=== PATIENT | female | born 1945 ===

== ENCOUNTER 2021-05-10 17:36 | Inpatient (IN) | payer OTHER ==
[~2021-05-10] VITALS: Ht 162.6 cm; Wt 78.6 kg
[2021-05-10 18:32] LABS: BASOPHILS ABSOLUTE AUTO 0.05 K/mm3 (0.00-0.23); BASOPHILS PERCENT AUTO 1 % (0-2); EOSINOPHILS ABSOLUTE AUTO 0.02 K/mm3 (0.00-0.68); EOSINOPHILS PERCENT AUTO 0 % (0-6); IMMATURE GRAN ABSOLUTE AUTO 0.03 K/mm3 (0.00-0.10); IMMATURE GRAN PERCENT AUTO 0 % (0-1); LYMPHOCYTES ABSOLUTE AUTO 0.81 K/mm3 (0.84-5.20); LYMPHOCYTES PERCENT AUTO 9 % (21-46); MONOCYTES ABSOLUTE AUTO 0.58 K/mm3 (0.16-1.47); MONOCYTES PERCENT AUTO 6 % (4-13); Mean Corpuscular HGB 27.1 pg (26.0-34.0); Mean Corpuscular Volume 90 fL (80-100); Mean Platelet Volume 9.1 fL (9.1-12.4); NEUTROPHILS ABSOLUTE AUTO 7.72 K/mm3 (1.96-9.15); NEUTROPHILS PERCENT AUTO 84 % (41-73); Platelet Count 268 K/mm3 (150-400); RDW Coefficient Variation 15.7 % (11.7-14.2); Red Blood Cell Count 4.43 M/mm3 (3.80-5.20); White Blood Cell Count 9.21 K/mm3 (4.00-11.30)
[2021-05-10] MEDS ORDERED: EUTHYROX150 MC1 PO (18:39)
[2021-05-10] MEDS ORDERED: METOPROLOL TART PO (18:39)
[2021-05-10] MEDS ORDERED: Lisinopril2.5 MG (18:40)
[2021-05-10] MEDS ORDERED: AMLODIPINE BES2.5 MG (18:40)
[2021-05-10 19:02] LABS: Alanine Aminotransfer (ALT/SGP 130 U/L (12-78); Albumin, Blood 3.1 g/dL (3.4-5.0); Alk Phos 151 U/L (50-136); Anion Gap 3 mmol/L (6-16); Aspartate Aminotrans (AST/SGOT 72 U/L (12-37); Bilirubin, Total 0.2 mg/dL (0.1-1.0); Blood Urea Nitrogen 25 mg/dL (8-24); Bun/Creatinine Ratio 27.4 (12.0-20.0); CO2, Blood 32 mmol/L (21-32); Calcium, Blood 8.6 mg/dL (8.5-10.1); Chloride, Blood 104 mmol/L (98-108); Creatinine, Blood 0.91 mg/dL (0.40-1.00); Globulin, Blood 3.2 g/dL (2.2-4.0); Glomerular Filtration Rate >60 (60-); Glucose, Blood 109 mg/dL (70-99); Potassium, Blood 4.6 mmol/L (3.5-5.5); Sodium, Blood 139 mmol/L (136-145); Total Protein, Blood 6.3 g/dL (6.4-8.2)
[2021-05-10 22:59] LABS: Influenza A, PCR NEGATIVE (NEGATIVE); Influenza B, PCR NEGATIVE (NEGATIVE); Resp Syncytial Virus, PCR NEGATIVE (NEGATIVE); SARS-Cov-2 (COVID-19) PCR, MMC NEGATIVE (NEGATIVE)
--- NOTE | 2021-05-11 05:10 | NUR ---
Received patient from ER. She came in for CHF Exacerbation. She is AAOX3, respiration unlabored, she is on O2 @4L via N/C. She is independent in the room, no complaint of pain or disconfort voices. She is able to communicates her need, She is pleasant and cooperative with care. Bed in low position, call light within reach, We will continue to monitor patient.
[2021-05-11 05:31] LABS: BASOPHILS ABSOLUTE AUTO 0.04 K/mm3 (0.00-0.23); BASOPHILS PERCENT AUTO 1 % (0-2); EOSINOPHILS ABSOLUTE AUTO 0.02 K/mm3 (0.00-0.68); EOSINOPHILS PERCENT AUTO 0 % (0-6); Hematocrit 37.3 % (33.0-51.0); IMMATURE GRAN ABSOLUTE AUTO 0.02 K/mm3 (0.00-0.10); IMMATURE GRAN PERCENT AUTO 0 % (0-1); LYMPHOCYTES ABSOLUTE AUTO 0.96 K/mm3 (0.84-5.20); LYMPHOCYTES PERCENT AUTO 14 % (21-46); MONOCYTES ABSOLUTE AUTO 0.57 K/mm3 (0.16-1.47); MONOCYTES PERCENT AUTO 8 % (4-13); Mean Corpuscular HGB 26.7 pg (26.0-34.0); Mean Corpuscular HGB Conc 29.5 g/dL (31.5-36.5); Mean Corpuscular Volume 91 fL (80-100); Mean Platelet Volume 9.2 fL (9.1-12.4); NEUTROPHILS ABSOLUTE AUTO 5.37 K/mm3 (1.96-9.15); NEUTROPHILS PERCENT AUTO 77 % (41-73); Platelet Count 248 K/mm3 (150-400); RDW Coefficient Variation 15.8 % (11.7-14.2); RDW Standard Deviation 51.9 fL (35.1-46.3); Red Blood Cell Count 4.12 M/mm3 (3.80-5.20); White Blood Cell Count 6.98 K/mm3 (4.00-11.30)
[2021-05-11 06:07] LABS: Bilirubin, Total 0.3 mg/dL (0.1-1.0); Bun/Creatinine Ratio 25.1 (12.0-20.0); Calcium, Blood 8.4 mg/dL (8.5-10.1); Creatinine, Blood 0.96 mg/dL (0.40-1.00)
[2021-05-11 11:08] LABS: Free Thyroxine 1.26 ng/dL (0.70-1.60)
[2021-05-11 11:10] LABS: Thyroid Stimulating Hormone 2.34 uIU/mL (0.360-4.800)
--- NOTE | 2021-05-11 17:33 | NUR ---
PATIENT HERE DUE TO CHF EXACERBATION, ALERT AND ORIENTED X 4, ON O2 3 L/MN VIA N/C, SAT 91-93%. ON TELE MONITORING, SHOWING NS BBB PER SUPERVISOR METAL CANS. ON LASIX IV. ECHOCARDIGRAM AND EKG DONE TODAY. LOW B/P THIS AFTERNOON. DENIES CHEST PAIN OR DISCOMFORT. WILL CONTINUE TO MONITOR.
--- NOTE | 2021-05-12 05:18 | NUR ---
PT IS AWAKE THIS MORNING. NO ACUTE EVENTS OVERNIGHT, THE PT DID NOT COMPLAIN OF N/V, SOB, OR PAIN DURING THE SHIFT. PT IS STILL ON 3L O2 AND IS SATTING >90 WITH NO SIGNS OF EXTRA WORK OF BREATHING. PT STATES SHE FEELS GREAT THIS MORNING. PT BELONGINGS AND CALL LIGHT ARE WITHIN REACH.
[2021-05-12 05:22] LABS: BASOPHILS ABSOLUTE AUTO 0.05 K/mm3 (0.00-0.23); BASOPHILS PERCENT AUTO 1 % (0-2); EOSINOPHILS PERCENT AUTO 1 % (0-6); Hematocrit 36.3 % (33.0-51.0); Hemoglobin 10.6 g/dL (11.5-16.0); IMMATURE GRAN ABSOLUTE AUTO 0.03 K/mm3 (0.00-0.10); IMMATURE GRAN PERCENT AUTO 0 % (0-1); LYMPHOCYTES ABSOLUTE AUTO 1.11 K/mm3 (0.84-5.20); LYMPHOCYTES PERCENT AUTO 15 % (21-46); MONOCYTES ABSOLUTE AUTO 0.68 K/mm3 (0.16-1.47); MONOCYTES PERCENT AUTO 9 % (4-13); Mean Corpuscular HGB 26.6 pg (26.0-34.0); Mean Corpuscular HGB Conc 29.2 g/dL (31.5-36.5); Mean Corpuscular Volume 91 fL (80-100); Mean Platelet Volume 9.2 fL (9.1-12.4); NEUTROPHILS ABSOLUTE AUTO 5.42 K/mm3 (1.96-9.15); NEUTROPHILS PERCENT AUTO 73 % (41-73); Platelet Count 253 K/mm3 (150-400); RDW Coefficient Variation 15.8 % (11.7-14.2); Red Blood Cell Count 3.99 M/mm3 (3.80-5.20); White Blood Cell Count 7.39 K/mm3 (4.00-11.30)
[2021-05-12 05:42] LABS: Alanine Aminotransfer (ALT/SGP 123 U/L (12-78); Albumin, Blood 2.9 g/dL (3.4-5.0); Alk Phos 143 U/L (50-136); Anion Gap 3 mmol/L (6-16); Aspartate Aminotrans (AST/SGOT 60 U/L (12-37); Bilirubin, Total 0.4 mg/dL (0.1-1.0); Blood Urea Nitrogen 24 mg/dL (8-24); Bun/Creatinine Ratio 29.4 (12.0-20.0); CO2, Blood 34 mmol/L (21-32); Calcium, Blood 7.9 mg/dL (8.5-10.1); Chloride, Blood 100 mmol/L (98-108); Creatinine, Blood 0.82 mg/dL (0.40-1.00); Glomerular Filtration Rate >60 (60-); Glucose, Blood 103 mg/dL (70-99); Potassium, Blood 4.1 mmol/L (3.5-5.5); Sodium, Blood 137 mmol/L (136-145); Total Protein, Blood 5.9 g/dL (6.4-8.2)
--- NOTE | 2021-05-12 16:10 | NUR ---
PATIENT ALERT AND ORIENTED X 4, ABLE TO VERBALIZE NEEDS. CONTINUES ON O2 AT 3L/MIN, SATTING 88-93%. CONTINUES ON IV LASIX. CONTINENT OF BOWEL AND BLADDER, INDEPENDENT WITH TOILETING. FLUID RESTRICTIOM 1500ML/DAY. COOPERATIVE WITH CARE. DENIES PAIN OR DISCOMFORT THROUGHOUT THE SHIFT.
--- NOTE | 2021-05-13 04:44 | NUR ---
PT IS SLEEPING THIS MORNING. PT DID C/O PAIN AND SOB BUT NO N/V. PAIN TREATED WITH ORDERED TYLENOL. PT OTHERWISE SATTING FINE >90, SOB ONLY INCREASED WHEN GETTING UP TO THE BATHROOM. PT STILL ON 3L NC. PT DID COMPLAIN OF THE CONTINUOUS PULSE OX BEEPING TOO OFTEN AND NOT BEING ABLE TO GET ANY SLEEP THE PAST COUPLE OF DAYS. SPOKE WITH RESPIRATORY ABOUT WAYS TO HELP WITH THIS ISSUE. PT NOW ON A PORTABLE PULSE OX ALTERNATIVE, WILL CONTINUE TO MONITOR. PT BELONGINGS AND CALL LIGHT WITHIN REACH.
[2021-05-13 05:41] LABS: Alanine Aminotransfer (ALT/SGP 106 U/L (12-78); Albumin, Blood 2.9 g/dL (3.4-5.0); Alk Phos 127 U/L (50-136); Anion Gap 3 mmol/L (6-16); Aspartate Aminotrans (AST/SGOT 45 U/L (12-37); Bilirubin, Total 0.4 mg/dL (0.1-1.0); Blood Urea Nitrogen 19 mg/dL (8-24); Bun/Creatinine Ratio 24.5 (12.0-20.0); CO2, Blood 37 mmol/L (21-32); Calcium, Blood 8.1 mg/dL (8.5-10.1); Chloride, Blood 98 mmol/L (98-108); Creatinine, Blood 0.78 mg/dL (0.40-1.00); Glomerular Filtration Rate >60 (60-); Glucose, Blood 110 mg/dL (70-99); Potassium, Blood 4.3 mmol/L (3.5-5.5); Sodium, Blood 138 mmol/L (136-145); Total Protein, Blood 5.9 g/dL (6.4-8.2)
--- NOTE | 2021-05-13 18:32 | NUR ---
PATIENT ALERT AND ORIENTED X 4, ABLE TO VERBALIZE NEEDS. CONTINUES ON O2 AT 3L/MIN, SATTING 88-93%. CONTINUES ON IV LASIX. CONTINENT OF BOWEL AND BLADDER INDEPENDENT WITH TOILETING. FLUID RESTRICTIOM 1500ML/DAY. COOPERATIVE WITH CARE. B/P LOW THIS AFTERNOON, DR NIX. NONIFIED, B/P MEDS AND LASIX.
--- NOTE | 2021-05-14 03:50 | NUR ---
SHIFT SUMMARY: BP HAS IMPROVED, PATIENT IS COMPLIANT WITH FLUID RESTRICTION. LUNGS HAVE FIBE CRACKLES AT THE BASES AND EXPIRATORY WHEEZES BILAT, 02 SAT IS 97% ON 5L. WEANING PROCESS STARTED, SAT IS 94% ON 3L NC AT THIS TIME. DESATURATION IS OBSERVED WITH AMB. TO THE BATHROOM.
[2021-05-14 05:45] LABS: Albumin, Blood 2.9 g/dL (3.4-5.0); Anion Gap 4 mmol/L (6-16); Blood Urea Nitrogen 23 mg/dL (8-24); Bun/Creatinine Ratio 29.4 (12.0-20.0); CO2, Blood 36 mmol/L (21-32); Calcium, Blood 8.3 mg/dL (8.5-10.1); Chloride, Blood 97 mmol/L (98-108); Creatinine, Blood 0.78 mg/dL (0.40-1.00); Glomerular Filtration Rate >60 (60-); Glucose, Blood 115 mg/dL (70-99); Phosphorus, Blood 2.2 mg/dL (2.5-4.9); Potassium, Blood 4.2 mmol/L (3.5-5.5); Sodium, Blood 137 mmol/L (136-145)
--- NOTE | 2021-05-14 18:22 | NUR ---
SHIFT SUMMARY; PATIENT INDEPENDANT IN ROOM THROUGHOUT THE DAY. COOPERATIVE WITH CARE. SHE HAD EPISODE THIS AM OF LOW O2 SATS IN THE 86 TO 88% ON 3 LITERS. INCREASED TO 5 LITERS AND WAS ABLE TO TITRATE PATIENT DOWN THIS AFTERNOON TO 3 LITERS WITH MAINTAINING SATS GREATER THAN 92%. DAUGHTER REMAINS AT BEDSIDE TODAY. PATIENT RECEIVING IV LASIX AND BILATERAL EDEMA IS SLOWLY DECREASING ON HER FEET. SHE IS STILL A 2+ EDEMA BUT IS NO LONGER PITTING. SKIN IS SOFT AND NOT MOIST. PATIENT IS AO X 4 THROUGHOUT THE DAY AND USES CALL LIGHT APPROPRIATELY. HAS ORDERED A HOME O2 EVAL FOR THIS PATIENT THOUGHTS ARE SHE MAY DC TOMORROW. SHE REMAINS HYPERTENSIVE THROUGHOUT THE DAY. OTHER VITALS ARE WNL. PT DENIES ANY CP OR SOB TODAY. ROGELIO JOHNSON RN
--- NOTE | 2021-05-15 05:13 | NUR ---
PT IS PLEASANTLY SLEEPING THIS MORNING. PT ALERT AND ORIENTED X4, NO C/O SOB ON 3L NC, TELE MONITORED- NSR, LE EDEMA IS +1 WITH NO CHANGES OVERNIGHT, PT IS ABLE TO AMBULATE TO THE BATHROOM FINE ON 3-4L NC. REPLACED SPO2 MONITOR DUE TO IT NOT READING. NO ACUTE EVENTS HAPPENDED OVERNIGHT, PT BELONGINGS AND CALL LIGHT WITHIN REACH.
[2021-05-15 07:46] LABS: BASOPHILS ABSOLUTE AUTO 0.05 K/mm3 (0.00-0.23); BASOPHILS PERCENT AUTO 1 % (0-2); EOSINOPHILS ABSOLUTE AUTO 0.04 K/mm3 (0.00-0.68); EOSINOPHILS PERCENT AUTO 1 % (0-6); Hematocrit 35.9 % (33.0-51.0); Hemoglobin 10.7 g/dL (11.5-16.0); IMMATURE GRAN ABSOLUTE AUTO 0.02 K/mm3 (0.00-0.10); IMMATURE GRAN PERCENT AUTO 0 % (0-1); LYMPHOCYTES ABSOLUTE AUTO 1.34 K/mm3 (0.84-5.20); LYMPHOCYTES PERCENT AUTO 19 % (21-46); MONOCYTES ABSOLUTE AUTO 0.78 K/mm3 (0.16-1.47); MONOCYTES PERCENT AUTO 11 % (4-13); Mean Corpuscular HGB 26.8 pg (26.0-34.0); Mean Corpuscular HGB Conc 29.8 g/dL (31.5-36.5); Mean Corpuscular Volume 90 fL (80-100); Mean Platelet Volume 9.1 fL (9.1-12.4); NEUTROPHILS ABSOLUTE AUTO 4.79 K/mm3 (1.96-9.15); NEUTROPHILS PERCENT AUTO 68 % (41-73); Platelet Count 237 K/mm3 (150-400); RDW Coefficient Variation 15.5 % (11.7-14.2); RDW Standard Deviation 51.7 fL (35.1-46.3); Red Blood Cell Count 3.99 M/mm3 (3.80-5.20); White Blood Cell Count 7.02 K/mm3 (4.00-11.30)
--- NOTE | 2021-05-15 18:54 | NUR ---
SHIFT SUMMARY; PATIENT HAD LASIX INCREASED TO 60MG IV BID BY DR. PATRICK. SHE TOLERATED WELL. POSSIBLE DC IN THE AM IF CONTINUES TO TITRATE DOWN ON HER O2. AT TIME OF THIS WRITING PATIENT IS 92% ON 2.5 LITERS O2. PATIENT INDEPENDANT IN ROOM. USES CALL LIGHT APPROPRIATELY. AO X 4. PLAN IS FOR HER TO GO HOME FOR A FEW DAYS WITH HER DAUGHTER AND TRANSITION BACK TO HOME AFTER A FEW DAYS. ROGELIO JOHNSON RN
--- NOTE | 2021-05-16 04:33 | NUR ---
SUMMARY: PT A/OX4, INDEPENDENT IN ROOM AND PLEASANT AND COOPERATIVE W/CARE. SHE ADMITS TO FEELING "MUCH BETTER" AND DENIED SOB, DYSPNEA, PAIN AND ALL OTHER COMPLAINTS. 2+ BLE EDEMA PERSISTS BUT PT COMPLIANT W/1.5L FR. SHE'S NSR W/1ST DEGREE, BBB AND INVERTED T WAVE AT 70'S BPM PER TREND. PT IS POSSIBLE D/C TODAY BUT WILL LIKELY NEED HOME 02 EVAL PRIOR. SPO2 IS WNL ON 3L O2 VIA NC BUT SHE'S ON RA AT BASELINE. I/S AND FLUTTER BEING UTILIZED WA. NO ACUTE CHANGES, VSS/AFEBRILE. WCTM AND REPORT TO DAY RN.
[2021-05-16 05:45] LABS: BASOPHILS ABSOLUTE AUTO 0.04 K/mm3 (0.00-0.23); BASOPHILS PERCENT AUTO 1 % (0-2); EOSINOPHILS ABSOLUTE AUTO 0.07 K/mm3 (0.00-0.68); EOSINOPHILS PERCENT AUTO 1 % (0-6); Hematocrit 39.2 % (33.0-51.0); Hemoglobin 11.4 g/dL (11.5-16.0); IMMATURE GRAN ABSOLUTE AUTO 0.03 K/mm3 (0.00-0.10); IMMATURE GRAN PERCENT AUTO 0 % (0-1); LYMPHOCYTES ABSOLUTE AUTO 1.34 K/mm3 (0.84-5.20); LYMPHOCYTES PERCENT AUTO 16 % (21-46); MONOCYTES ABSOLUTE AUTO 0.77 K/mm3 (0.16-1.47); MONOCYTES PERCENT AUTO 9 % (4-13); Mean Corpuscular HGB 26.5 pg (26.0-34.0); Mean Corpuscular HGB Conc 29.1 g/dL (31.5-36.5); Mean Corpuscular Volume 91 fL (80-100); Mean Platelet Volume 9.2 fL (9.1-12.4); NEUTROPHILS ABSOLUTE AUTO 6.28 K/mm3 (1.96-9.15); NEUTROPHILS PERCENT AUTO 74 % (41-73); Platelet Count 266 K/mm3 (150-400); RDW Coefficient Variation 15.5 % (11.7-14.2); RDW Standard Deviation 51.6 fL (35.1-46.3); White Blood Cell Count 8.53 K/mm3 (4.00-11.30)
[2021-05-16 06:09] LABS: Anion Gap 6 mmol/L (6-16); Blood Urea Nitrogen 25 mg/dL (8-24); Bun/Creatinine Ratio 32.3 (12.0-20.0); CO2, Blood 35 mmol/L (21-32); Calcium, Blood 8.2 mg/dL (8.5-10.1); Chloride, Blood 96 mmol/L (98-108); Creatinine, Blood 0.77 mg/dL (0.40-1.00); Glomerular Filtration Rate >60 (60-); Glucose, Blood 133 mg/dL (70-99); Phosphorus, Blood 2.4 mg/dL (2.5-4.9); Potassium, Blood 4.1 mmol/L (3.5-5.5); Sodium, Blood 137 mmol/L (136-145)
--- NOTE | 2021-05-16 08:29 | NUR ---
DR ROMAN CAME TO SEE THE PT- HE REQUESTED ONE MORE 60MG DOSE OF IV LASIX TO BE GIVEN THIS MORNING. PLACED THE ORDER IN ORDER MANAGEMENT. HOLD FOR SBP LESS THAN 100.
--- NOTE | 2021-05-16 11:07 | NUR ---
AM NOTE ASSUMED CARE OF PT. MS HENDRICKSON IS A+OX4. DENIES ANY PAIN. NO SOB, BUT STILL REQUIRING 2L O2 N/C TO MAINTAIN O2 SATS. ON TELEMETRY - SR PER [facility] TECH. BLE EDMA, REDNESS TO BOTH FEET. PLAN TO DISCHARGE HOME THIS AFTERNOON. LASIX GIVEN THIS MORNING IV WITH GOOD UOP RESPONSE. BED LOW, CALL LIGHT IN REACH. LIMITED CODE, NO CPR, NO MEDS, YES TO INTUBATION PER PT AND REPORT.
[2021-05-16] MEDS ORDERED: SPIR25 PO (12:10)
[2021-05-16] MEDS ORDERED: Furosemide20 MG PO (12:13)
[2021-05-16] MEDS ORDERED: ANORO ELLIPTA1 EACH INH (12:14)
[2021-05-16] MEDS ORDERED: ALBU90OI INH (12:21)
[2021-05-16] MEDS ORDERED: TORSE20 PO (12:23)
[2021-05-16] MEDS ORDERED: INCRUSE ELLIPTA INH (12:47)
--- NOTE | 2021-05-16 13:30 | NUR ---
CALLED DR CHANEY & DR ROMAN ALL DISCHARGE ORDERS CLARIFIED AND [facility] WAS CALLED WITH THE DISCHARGE MED ORDERS. [facility] ORDERS ARE IN AND THE PULMONARY HYPERTENSION CLINIC IN [place] AT [facility] NOT DONE. REQUESTED PT PCP TO CONSULT OUT PT. PT AND DAUGHTER AWARE OF THIS AND WILL TAKE DC PAPERWORK WITH THEM TO THE FOLLOW UP APPOINTMENT ON THE .
--- NOTE | 2021-05-16 15:07 | NUR ---
DISCHARGE NOTE- PT AND DAUGHTER PRESENT FOR DISCHARGE TEACHING; BOTH WERE GIVEN VERBAL AND WRITTEN DISCHARGE ORDERS AND ACKNOWLEDGED INDERSTANDING OF THEM. HOME HEALTH FACE TO FACE COMPLETED, [facility] DELIVERED PORTABLE O2 TANK FOR THE PT. PT IV AND TELE WERE DC'D AT THE TIME OF DISCHARGE AND PT WAS ESCORTED OUT VIA WC BY THE CHANNEL SALES MANAGER. NO S&S OF DISTRESS NOTED AT THE TIME OF DISCHARGE.
--- NOTE | 2021-05-16 16:01 | NUR ---
Received referral from nurse transitional care liaison (Elder Duran) on 05/16/2021. Patient is to discharge 05/16/2021 with orders for home health and elected [facility]. Patient was admitted to [facility] on 05/10/2021 due to acute exacerbation of CHF. Review of patient's records indicate that patient received a referral for outpatient pulmonary rehab. Contacted discharging hospitalist (Dr. Blank) regarding the above. Per hospitalist patient is to attend outpatient pulmonary rehab and does NOT need home health services. Attempted to reach patient's daughter (Bisi Diaz) with whom I met with at patient's bedside, along with patient. Unfortunately patient's daughter did not answer. Left voicemail regarding the above today- 05/16/2021 at 1559. Instructed patient's daughter to contact me at home health if she had any further questions. No further interventions Allyssa Esteban Referral Liaison
== END 2021-05-16 15:15 | disposition home or self-care (01) | DRG 175 ==
LOC: ER 17:36 → MEDS 21:05
PROVIDERS: Emergency Medicine; Family Medicine; Internal Medicine; ADMIT Internal Medicine
DX: I26.09 Other pulmonary embolism with acute cor pulmonale (principal); J96.01 Acute respiratory failure with hypoxia; I50.33 Acute on chronic diastolic (congestive) heart failure; I24.8 Other forms of acute ischemic heart disease; Z20.822 Contact with and (suspected) exposure to COVID-19; Z66 Do not resuscitate; I11.0 Hypertensive heart disease with heart failure; E03.9 Hypothyroidism, unspecified; J43.9 Emphysema, unspecified; I27.20 Pulmonary hypertension, unspecified; I35.0 Nonrheumatic aortic (valve) stenosis; I51.7 Cardiomegaly; I07.1 Rheumatic tricuspid insufficiency; Z87.891 Personal history of nicotine dependence; Z88.5 Allergy status to narcotic agent; Z90.89 Acquired absence of other organs; Z79.899 Other long term (current) drug therapy
CPT/HCPCS: 0241U; 36415; 71045; 71260; 80053; 80069; 83880; 84145; 84439; 84443; 84484; 85025; 85379; 93005; 93010; 93306; 94640; 94761; 94762; 96374-59; 99285-25; A9270; J1650; J1940; Q9967

== ENCOUNTER 2022-10-04 08:26 | Day surgery (SDC) | payer OTHER ==
[~2022-10-04 08:26] MED LIST: ALBU90OI INH; AMLODIPINE BES2.5 MG; ANORO ELLIPTA1 EACH INH; EUTHYROX150 MC1 PO; Furosemide20 MG PO; INCRUSE ELLIPTA INH; Lisinopril2.5 MG; METOPROLOL TART PO; SPIR25 PO; TORSE20 PO
== END 2022-10-04 22:48 | disposition home or self-care (01) ==
LOC: WOUND 08:26
DX: S81.801D Unspecified open wound, right lower leg, subsequent encounter (principal); X58.XXXD Exposure to other specified factors, subsequent encounter; I70.213 Atherosclerosis of native arteries of extremities with intermittent claudication, bilateral legs; I11.0 Hypertensive heart disease with heart failure; I50.82 Biventricular heart failure; J44.9 Chronic obstructive pulmonary disease, unspecified; Z88.5 Allergy status to narcotic agent
CPT/HCPCS: A9270; G0463

== ENCOUNTER 2022-10-10 02:34 | Day surgery (SDC) | payer OTHER | END 2022-10-10 23:42 | disposition home or self-care (01) | LOC: WOUND 02:34 | DX: S81.801A Unspecified open wound, right lower leg, initial encounter (principal); W22.8XXA Striking against or struck by other objects, initial encounter; L97.812 Non-pressure chronic ulcer of other part of right lower leg with fat layer exposed; I70.213 Atherosclerosis of native arteries of extremities with intermittent claudication, bilateral legs; I50.82 Biventricular heart failure; J44.9 Chronic obstructive pulmonary disease, unspecified | CPT/HCPCS: A9270; G0463 ==

== ENCOUNTER 2022-10-24 04:06 | Day surgery (SDC) | payer OTHER | END 2022-10-24 23:20 | disposition home or self-care (01) | LOC: WOUND 04:06 | DX: L97.812 Non-pressure chronic ulcer of other part of right lower leg with fat layer exposed (principal); I70.213 Atherosclerosis of native arteries of extremities with intermittent claudication, bilateral legs; I50.82 Biventricular heart failure | CPT/HCPCS: G0463 ==

== ENCOUNTER 2022-10-31 00:14 | Day surgery (SDC) | payer OTHER | END 2022-10-31 22:45 | disposition home or self-care (01) | LOC: WOUND 00:14 | DX: I70.213 Atherosclerosis of native arteries of extremities with intermittent claudication, bilateral legs (principal); I50.82 Biventricular heart failure; J44.9 Chronic obstructive pulmonary disease, unspecified; Z99.81 Dependence on supplemental oxygen | CPT/HCPCS: G0463 ==

== ENCOUNTER → 2023-03-04 | Outpatient (CLI) | payer OTHER ==
[2023-03-05 08:03] LABS: Stool Occult Bld Immuno 1 Negative (NEGATIVE); Stool Occult Bld Immuno 2 Negative (NEGATIVE); Stool Occult Bld Immuno 3 Negative (NEGATIVE)
== END | disposition home or self-care (01) ==
LOC: LAB 15:11 → LAB SHORT 15:11 → EDSTATUS 02-13 15:35 → LAB FUT 02-13 15:35
PROVIDERS: Registered Nurse Oncology
DX: D50.9 Iron deficiency anemia, unspecified (principal)
CPT/HCPCS: G0328